=== PATIENT | male | born 1990 | race Caucasian/White ===

== ENCOUNTER 2017-04-27 07:14 | Inpatient (IN) ==
[2017-04-27] MEDS ORDERED: CLINDAMYCIN INJ 900 MG in PREMIX 1 EACH IV STA (07:51)
[2017-04-27] MEDS ORDERED: KETOROLAC 30 MG/1 ML VIAL ONE (08:12)
[2017-04-27] MEDS ORDERED: KETOROLAC 30 MG/1 ML VIAL IV STA (08:12)
[2017-04-27 08:17] LABS: Basophils % 0.4 % (0.0-0.8); Hematocrit 37.8 VOL% (42.0-52.0); Hemoglobin 12.8 GM/DL (14.0-18.0); Immature Granulocytes % 0.5 %; Lymphocytes # 1.8 10*3/uL (1.4-4.0); Lymphocytes % 22.2 % (21.2-54.2); Mean Corpuscular HGB Conc 33.9 GM/DL (32-36); Mean Corpuscular Hemoglobin 32 PG (27-34); Mean Corpuscular Volume 94.7 FL (87-102); Mean Platelet Volume 10.2 FL (9.6-12.0); Monocytes # 0.7 10*3/uL (0.11-0.8); Monocytes % 9.1 % (1.7-12.7); Neutrophils # 5.1 10*3/uL (1.4-7.4); Neutrophils % 64.8 % (38.7-73.9); Platelet Count 213 T/CUMM (130-400); Red Blood Count 3.99 MC/CUMM (3.8-5.5); Red Cell Distribution Width 12.4 % (9.3-17.3); White Blood Count 7.9 T/CUMM (4-12)
[2017-04-27 08:18] LABS: Eosinophils # 0.2 10*3/uL (0.0-0.87); Immature Granulocytes Absolute 0.04 #
[2017-04-27] MEDS ORDERED: CLINDAMYCIN INJ 50 ML IV ONE (08:32)
[2017-04-27] MEDS ORDERED: cloNIDine 0.1 MG TABLET PO STA (08:51)
[2017-04-27 08:52] LABS: Calcium 8.5 MG/DL (8.5-10.1); Osmolality,Calculated 279.7 MOS/KG (273-304)
[2017-04-27] MEDS ORDERED: cloNIDine 0.1 MG TABLET ONE (08:56)
[2017-04-27] MEDS ORDERED: traZODone 50 MG TABLET PO PRN (10:18)
[2017-04-27] MEDS ORDERED: diphenhydrAMINE CAP 25 MG CAPSULE PO PRN (10:18)
[2017-04-27] MEDS ORDERED: ACETAMINOPHEN 325 MG TABLET PO PRN (10:18)
[2017-04-27] MEDS ORDERED: DOCUSATE SODIUM 100 MG CAPSULE PO PRN (10:18)
[2017-04-27] MEDS ORDERED: guaiFENesin/DM ER 600-30 MG TABLET PO PRN (10:18)
[2017-04-27] MEDS ORDERED: ONDANSETRON 4 MG/2 ML VIAL IV PRN (10:18)
[2017-04-27] MEDS ORDERED: NICOTINE 21 MG/24 HR PATCH TRANSDERM PRN (10:18)
[2017-04-27] MEDS: amLODIPine 5 MG TABLET PO SCH (12:05)
[2017-04-27] MEDS: PANTOPRAZOLE 40 MG TABLET PO SCH (12:05)
[2017-04-27] MEDS: ENOXAPARIN 40 MG/0.4 ML SYRINGE SUBCUT SCH (12:05)
[2017-04-27] MEDS: CEFTAROLINE 600 MG in SODIUM CHLORIDE 0.9% 100 ML IV SCH (12:12)
[2017-04-27] MEDS: LISINOPRIL 10 MG TABLET PO SCH (13:17)
[2017-04-27] MEDS: LACTOBACILLUS RHAMNOSUS GG CAPSULE PO SCH ×2 (13:17→21:55)
[2017-04-27] MEDS: NICOTINE 21 MG/24 HR PATCH TRANSDERM SCH (13:18)
[2017-04-27] MEDS: HYDROmorphone 2 MG/1 ML VIAL IV SCH ×2 (13:24→15:09)
[2017-04-27] MEDS ORDERED: HYDROmorphone 2 MG/1 ML VIAL IV PRN (15:26)
[2017-04-28] MEDS: CEFTAROLINE 600 MG in SODIUM CHLORIDE 0.9% 100 ML IV SCH ×3 (00:18→23:56)
[2017-04-28 06:27] LABS: Basophils % 0.5 % (0.0-0.8); Eosinophils # 0.3 10*3/uL (0.0-0.87); Eosinophils % 3.9 % (0.00-10.9); Hematocrit 38.8 VOL% (42.0-52.0); Hemoglobin 12.9 GM/DL (14.0-18.0); Immature Granulocytes % 0.8 %; Immature Granulocytes Absolute 0.05 #; Lymphocytes # 1.9 10*3/uL (1.4-4.0); Lymphocytes % 28.5 % (21.2-54.2); Mean Corpuscular HGB Conc 33.2 GM/DL (32-36); Mean Corpuscular Hemoglobin 32 PG (27-34); Mean Corpuscular Volume 96.8 FL (87-102); Mean Platelet Volume 10.3 FL (9.6-12.0); Monocytes # 0.6 10*3/uL (0.11-0.8); Monocytes % 9.7 % (1.7-12.7); Neutrophils # 3.7 10*3/uL (1.4-7.4); Neutrophils % 56.6 % (38.7-73.9); Platelet Count 209 T/CUMM (130-400); Red Blood Count 4.01 MC/CUMM (3.8-5.5); Red Cell Distribution Width 12.6 % (9.3-17.3); White Blood Count 6.6 T/CUMM (4-12)
[2017-04-28 07:00] LABS: Calcium 8.8 MG/DL (8.5-10.1)
[2017-04-28 07:01] LABS: Magnesium 2.5 MG/DL (1.8-2.4); Osmolality,Calculated 275.7 MOS/KG (273-304); Potassium 4.3 MMOL/L (3.5-5.1)
[2017-04-28] MEDS: PANTOPRAZOLE 40 MG TABLET PO SCH (08:52)
[2017-04-28] MEDS: LISINOPRIL 10 MG TABLET PO SCH (08:52)
[2017-04-28] MEDS: amLODIPine 5 MG TABLET PO SCH (08:52)
[2017-04-28] MEDS: LACTOBACILLUS RHAMNOSUS GG CAPSULE PO SCH ×2 (08:52→21:45)
[2017-04-28] MEDS: NICOTINE 21 MG/24 HR PATCH TRANSDERM SCH (08:53)
[2017-04-28] MEDS ORDERED: ERGOCALCIFEROL 50,000 UNIT CAPSULE PO SCH (10:00)
[2017-04-28] MEDS: ENOXAPARIN 40 MG/0.4 ML SYRINGE SUBCUT SCH (10:03)
[2017-04-28] MEDS: buPROPion SR 150 MG TABLET PO SCH (17:12)
[2017-04-29] MEDS: FUROSEMIDE 40 MG TABLET PO SCH (08:44)
[2017-04-29] MEDS: amLODIPine 5 MG TABLET PO SCH (08:44)
[2017-04-29] MEDS: LACTOBACILLUS RHAMNOSUS GG CAPSULE PO SCH ×2 (08:44→20:50)
[2017-04-29] MEDS: PANTOPRAZOLE 40 MG TABLET PO SCH (08:45)
[2017-04-29] MEDS: LISINOPRIL 10 MG TABLET PO SCH (08:45)
[2017-04-29] MEDS: buPROPion SR 150 MG TABLET PO SCH ×2 (08:45→20:51)
[2017-04-29] MEDS: NICOTINE 21 MG/24 HR PATCH TRANSDERM SCH (08:53)
[2017-04-29] MEDS: ENOXAPARIN 40 MG/0.4 ML SYRINGE SUBCUT SCH (10:48)
[2017-04-29] MEDS: CEFTAROLINE 600 MG in SODIUM CHLORIDE 0.9% 100 ML IV SCH ×2 (13:08→23:20)
[2017-04-29] MEDS: SKIN HEALING OINT (AQUAPHOR) 50 GM TUBE TOP SCH (20:51)
[2017-04-30] MEDS: SKIN HEALING OINT (AQUAPHOR) 50 GM TUBE TOP SCH (08:37)
[2017-04-30] MEDS: LISINOPRIL 10 MG TABLET PO SCH (08:37)
[2017-04-30] MEDS: LACTOBACILLUS RHAMNOSUS GG CAPSULE PO SCH (08:38)
[2017-04-30] MEDS: buPROPion SR 150 MG TABLET PO SCH (08:38)
[2017-04-30] MEDS: amLODIPine 5 MG TABLET PO SCH (08:39)
[2017-04-30] MEDS: FUROSEMIDE 40 MG TABLET PO SCH (08:39)
[2017-04-30] MEDS: PANTOPRAZOLE 40 MG TABLET PO SCH (08:39)
[2017-04-30] MEDS: NICOTINE 21 MG/24 HR PATCH TRANSDERM SCH (08:40)
[2017-04-30] MEDS: ENOXAPARIN 40 MG/0.4 ML SYRINGE SUBCUT SCH (10:51)
[2017-04-30 11:21] VITALS: BP 141/79
[2017-04-30] MEDS: CEFTAROLINE 600 MG in SODIUM CHLORIDE 0.9% 100 ML IV SCH (13:40)
== END 2017-04-30 15:53 | disposition home or self-care (01) | DRG 603 ==
LOC: N.ED 07:14 → N.EDINP 10:18 → N.3E 11:10
PROVIDERS: ADMIT Hospitalist; ATTEND Hospitalist